=== PATIENT | male | born 1985 | race Caucasian/White ===

== ENCOUNTER 2017-07-14 20:50 | Emergency (ER) | payer SELFPAY ==
--- NOTE | 2017-07-14 21:15 | NUR ---
PATIENT LEFT WITHOUT BEING SEEN BY DR. YAP. NO FURTHER CARE PROVIDED FOR PATIENT.
== END 2017-07-14 21:18 | disposition left against medical advice (07) ==
LOC: MED 20:50
DX: Z53.21 Procedure and treatment not carried out due to patient leaving prior to being seen by health care provider (principal)